=== PATIENT | female | born 1970 | race Caucasian/White ===

== ENCOUNTER → 2020-03-06 | Outpatient (CLI) | payer BC | END | disposition home or self-care (01) | LOC: LABWHC1 15:15 | PROVIDERS: ATTEND Family Medicine | DX: Z03.818 Encounter for observation for suspected exposure to other biological agents ruled out (principal) | CPT/HCPCS: U0003; C9803 ==

== ENCOUNTER → 2020-03-21 | Outpatient (CLI) | payer BC | END | disposition home or self-care (01) | LOC: LABWHC1 13:11 | PROVIDERS: ATTEND Family Medicine | DX: Z20.828 Contact with and (suspected) exposure to other viral communicable diseases (principal) | CPT/HCPCS: U0003; C9803 ==

== ENCOUNTER → 2020-08-15 | Outpatient (CLI) | payer BC | END | disposition home or self-care (01) | LOC: LABWHC1 13:58 | PROVIDERS: ATTEND Family Medicine | DX: U07.1 COVID-19 (principal) | CPT/HCPCS: U0003; C9803; U0005 ==

== ENCOUNTER → 2021-11-04 | Outpatient (CLI) | payer BC ==
--- NOTE | 2021-11-04 12:11 | XR ---
EXAMINATION TYPE: XR foot complete RT DATE OF EXAM: 11/04/2021 COMPARISON: None HISTORY: Dropped heavy item on foot 5 weeks prior, pain TECHNIQUE: 3 view right foot FINDINGS: No acute fractures or. Joint spaces and mild narrowing of the digits. Plantar and Achilles tendon calcaneal heel spurs are present. There is some ossification adjacent to the anterior lateral cuboid. This may be secondary ossificatio n center. Old avulsion from the base of the fifth metatarsal could be considered. IMPRESSION: 1. No acute or subacute fractures evident. 2. Suspected secondary ossification center near the base of the fifth metatarsal. Old avulsion could be considered.
== END | disposition home or self-care (01) ==
LOC: RADXRMAIN 09:34
PROVIDERS: ATTEND Family Medicine
DX: S92.901A Unspecified fracture of right foot, initial encounter for closed fracture (principal); Y99.9 Unspecified external cause status